=== PATIENT | male | born 1980 | race Caucasian/White ===

== ENCOUNTER 2017-12-15 09:24 | Emergency (ER) | payer MEDICAID ==
[2017-12-15] MEDS: IBUPROFEN 600 MG TAB PO (09:48)
[2017-12-15] MEDS: ACETAMINOPHEN 325 MG TAB PO (09:48)
== END 2017-12-15 10:23 | disposition home or self-care (01) ==
LOC: FTE 09:24
DX: B34.9 Viral infection, unspecified (principal)
CPT/HCPCS: 99283; Z7502